=== PATIENT | female | born 1945 | race African-American/Black ===

== ENCOUNTER 2020-09-28 22:45 | Emergency (ER) | payer MEDICARE ==
[~2020-09-28] VITALS: Ht 172.7 cm; Wt 68.2 kg
[2020-09-29 03:45] VITALS: BP 150/89; PULSE 63; TEMP 98.1
== END 2020-09-29 03:45 | disposition home or self-care (01) ==
LOC: COL.ER 22:45
DX: K94.23 Gastrostomy malfunction (principal); E11.9 Type 2 diabetes mellitus without complications

== ENCOUNTER 2021-11-09 11:45 | Emergency (ER) | payer MEDICARE ==
[~2021-11-09] VITALS: Ht 172.7 cm; Wt 68.2 kg
[2021-11-09 12:01] VITALS: TEMP 98.3
[2021-11-09 13:09] LABS: BASO % 0.7 % (0.0-2.0); EOS # 0.3 K/mm3 (0.0-0.7); EOS % 8.1 % (0.0-4.0); GRAN # 2.4 K/mm3 (1.4-6.5); GRAN % 57.8 % (42.2-75.2); HEMOGLOBIN 10.8 g/dl (12.5-16.0); LYMPH # 1.1 K/mm3 (1.2-3.4); LYMPH % 26.3 % (20.0-51.0); MEAN CELL VOLUME 92 fl (80.0-100.0); MEAN CORPUSCULAR HEMOGLOBIN 30 pg (27-31); MEAN CORPUSCULAR HGB CONC 33 g/dl (33.0-37.0); MEAN PLATELET VOLUME 9.7 fl (7.4-10.4); MONO # 0.3 K/mm3 (0.1-0.6); MONO % 6.9 % (1.7-9.3); PLATELET COUNT 175 K/mm3 (130-400); REDCELL DISTRIBUTION WIDTH-CV 12.2 % (11.5-14.5)
[2021-11-09 13:15] LABS: INR 1.2 (0.8-3.0); PROTHROMBIN TIME 13.3 SECONDS (9.7-12.8)
[2021-11-09 13:17] LABS: PARTIAL THROMBOPLASTIN TIME 33.2 SECONDS (26.0-37.0)
[2021-11-09 13:28] LABS: ALANINE AMINOTRANSFERASE 8 U/L (0-55); ALBUMIN 3.8 gm/dL (3.4-4.8); ALKALINE PHOSPHATASE 56 U/L (40-150); ANION GAP 10 mmol/L (7-16); AST,SGOT 14 U/L (5-34); BILIRUBIN,TOTAL 0.7 mg/dL (0.2-1.2); BLOOD UREA NITROGEN 12 mg/dL (10-20); C-REACTIVE PROTEIN 0.23 mg/dL (0.00-0.50); CALCIUM 9.6 mg/dL (8.4-10.2); CARBON DIOXIDE 27 mmol/L (23-31); CHLORIDE 105 mmol/L (98-107); CREATININE, serum 0.87 mg/dL (0.57-1.11); GLUCOSE 244 mg/dL (70-99); POTASSIUM 3.7 mmol/L (3.5-4.5); SODIUM 142 mmol/L (136-145); TOTAL PROTEIN 7.3 gm/dL (6.2-8.1)
[2021-11-09 13:34] LABS: TROPONIN-I 0.016 ng/mL (0.00-0.033)
[2021-11-09 13:36] LABS: LIPASE < 4 U/L (8-78)
[2021-11-09] MEDS ORDERED: GLUCOTROL XL2.5 MG PO (14:28)
[2021-11-09 15:44] VITALS: BP 171/84; PULSE 50
--- NOTE | 2021-11-10 09:11 | NUR ---
(Late Entry from 11/09/21) [employer] was consulted to ED for patient who arrived to [place] yesterday from [place] to live with her two daughters, Jennifer (ph#[phone]) and Mere (ph#[phone]). SW consulted to assist with establishing patient with primary care and home health. HUMBERTO met with patient and her daughter, Jennifer at bedside. Patient not able to answer questions as she had her hat over her eyes and was in pain from her IV placement. Jennifer advised patient was discharged from [facility] in [place] and arrived in [place] by car yesterday. Jennifer advised patient is eating okay, however they cannot get her to drink water. Jennifer advised that her sister, Mere goes to [facility] and they would be agreeable to patient getting set up here. HUMBERTO also provided Medicare.gov list of HH agencies for review and advised that a referral can be sent, however HH cannot start until a primary care provider is established. Jennifer verbalized understanding and will have Mere look over list as she is knowledgeable about providers in the area as she is a local psychosocial rehabilitation counselor. HUMBERTO contacted Ellie at [facility] who reviewed patient's chart and advised their new physician, Dr. Campoverde can accept patient and that she would reach out to one of the daughters tomorrow to set up care. HUMBERTO corresponded with Mere via email (with no identifying information provided) and Mere advised her preferences for HH would be [facility] or [facility]. HUMBERTO contacted both agencies and faxed referrals.
== END 2021-11-09 15:45 | disposition home or self-care (01) ==
LOC: COL.ER 11:45
PROVIDERS: Family Medicine
DX: E86.0 Dehydration (principal); Z87.891 Personal history of nicotine dependence; Z28.310 Unvaccinated for COVID-19
CPT/HCPCS: J2405; J7120